=== PATIENT | female | born 1985 | race Caucasian/White ===

== ENCOUNTER 2017-06-07 17:54 | Emergency (ER) | payer OTHER ==
[~2017-06-07] VITALS: Ht 154.9 cm; Wt 56.8 kg
[2017-06-07 18:05] VITALS: BP 140/89; PULSE 80; RESP 20; O2SAT 100
--- NOTE | 2017-06-07 18:40 | DRSVH ---
PROCEDURE: X-RAY CHEST, TWO VIEWS ([id number]) INDICATIONS: CHEST PAIN W/BREATING DEEP TECHNIQUE: 2 views of the chest were acquired. COMPARISON: None. FINDINGS: Surgical changes and devices: None. Lungs and pleura: No pleural effusions or pneumothorax. Lungs are clear. Mediastinum: Mediastinal contours are normal. Heart size is normal. Bones and chest wall: No suspicious bony abnormalities. Soft tissues appear unremarkable. IMPRESSION: No acute pulmonary process. Dictated by: Jeanna Berry M.D. on 06/07/2017 at 18:38 Approved by: Jeanna Berry M.D. on 06/07/2017 at 18:38
[2017-06-07 18:58] LABS: BASOPHILS % (AUTO) 0.6 % (0-3); EOSINOPHILS % (AUTO) 5.3 % (0-5); MONOCYTES % (AUTO) 5.3 % (4-12); Mean Corpuscular Volume 90.8 fL (81-100); NEUTROPHILS % (AUTO) 41.9 % (40-74); Platelet Count 181 bil/L (150-400)
[2017-06-07 19:01] VITALS: BP 122/84; PULSE 76; RESP 11; O2SAT 99
--- NOTE | 2017-06-07 19:22 | ED.REPORT ---
HPI-Chest Pain Under 40 Date of Service Jun 07, 2017 ED Provider: Walt Cline DO Pt is an otherwise healthy 31 year old female who presents to the ED complaining of chest pain onset today. The pt denies sore throat and cough. Pt reports that the chest pain initially started in her throat. Her pain is exacerbated with deep inspiration, laughing, and certain movements. She denies a history of blood clot, recent lower extremity casting, recent surgery, recent 12 hour car ride, , and estrogen use. She also denies taking a deep breath and holding it. Pt reports that she is a former smoker, and that she quit in 04/2017. The pt admits to a car ride from [place] today, but states that it was not 12 hours. Pt does not have a family history of blood clots. She states that she ran for 30 minutes today while looking for her wallet on the freeway. Per pt, she has experienced similar symptoms previously after running in the cold. Nursing Notes Stated Complaint: PAIN IN CHEST/THROAT AREA Chief Complaint: Chest Pain-Non Cardiac Nature Nursing Notes Reviewed: Yes Allergies: Coded Allergies: No Known Allergies (Unverified , 06/07/17) General Time Seen by MD: 19:20 Chief Complaint Chest pain Hx Obtained From: Patient Arrived By: Walk-in Sudden in Onset?: No Onset Occurred: Just prior to arrival Symptom Duration: Since onset Location: : Substernal Quality: Painful Radiation: : Does not radiate Severity: Current: Moderate Severity: Maximum: Moderate Recent Healthcare: No recent doctor visit, No recent hospitalization Similar Sx Previous: Yes Risk Factors )( CAD Risk Stratification No Amphetamine, No Cocaine, No Diabetes mellitus, No Family history, No Hyperlipidemia, No Hypertension, No Known CAD, No Smoking Risk factors reviewed, No risk factors TAD Risk Stratification No 1st degree relative, No Aortic valve disease, No Coarctation of aorta, No Adriel-Danlos syndrome, No High intensity wt lifting, No Hypertension, No Inflamm dx / vasculitis, No Loeys-Dayna syndrome, No Marfan's syndrome, No Other genetic predisp, No Pre-exist aortic aneurysm, No , No Turners Syndrome Risk factors reviewed, No risk factors )( PE Risk Stratification No Coagulation Disorder, No Estrogen Medicine / BCP's, No Melisa, No Immobilization, No Malignancy, No , No , No Previous DVT, No Previous PE, No Surgery Last 60 Days, No Trauma Risk factors reviewed, No risk factors PERC Rule Heart rate 100 or over (101) PERC Result: PERC rule not satisfied Well's Criteria for PE Well's PE Score: 0-2 pts (low risk 3.6%) Past Medical History Past Medical History None reported - healthy Denies hx of blood clots Past Surgical History Denies Family History Denies blood clot Smoking History Former Smoker Social History Alcohol Use: "Social" Drug Use: Denies drug use Occupation [employer] Ambulatory Status Independent Review of Systems + pain with breathing Respiratory: Denies: Non-productive cough Cardiovascular: Reports: Chest pain Complete sys rev & neg: except as marked. Ears / Nose / Throat: Reports: Throat pain, Denies: Sore throat Physical Exam Initial Vital Signs Vital Signs (First) Date Time Temp Pulse Resp B/P Pulse Ox O2 Delivery O2 Flow Rate FiO2 06/07/17 18:05 37.1 80 20 140/89 100 Room Air Initial VS: Reviewed Head / Eyes: Atraumatic, Normocephalic Neck: Supple, Full range of motion Abdomen / GI: Soft, Non-tender Extremities: Vascular intact, Neuro intact Skin: Warm, Dry, No cyanosis Neurologic: Alert, Oriented, Nonfocal Psychiatric: Mood/affect normal, Behavior normal General/Constitutional: Awake, Alert Respiratory / Chest: Atraumatic, Breath sounds NL, Breath sounds = bilat Cardiovascular: Regular rhythm, Heart sounds NL Heart Rate / Rhythm: Positive: Tachycardia Interpretation & Diagnostics Lab Results Interpretation Result Diagram: 06/07/17 18506/07/17 185 Test 06/07/17 18:51 06/07/17 19:19 06/07/17 21:05 White Blood Count 5.2th/mm3 (3.8-10.1) Red Blood Count 4.15mil/mm3 (3.90-5.20) Hemoglobin 13.3g/dL (12.0-15.6) Hematocrit 37.7% (35.0-46.0) Mean Corpuscular Volume 90.8fL (81-100) Mean Corpuscular Hemoglobin 32.0pg (27.0-35.0) Mean Corpuscular Hemoglobin Concent 35.3% (32.0-37.0) Red Cell Distribution Width 12.1% (12.3-15.4) Platelet Count 181bil/L (150-400) Neutrophils (%) (Auto) 41.9% (40-74) Lymphocytes (%) (Auto) 46.9% (14-46) Monocytes (%) (Auto) 5.3% (4-12) Eosinophils (%) (Auto) 5.3% (0-5) Basophils (%) (Auto) 0.6% (0-3) D-Dimer < 0.50mg/L FEU (<0.50) Sodium Level 142mEq/L (134-144) Potassium Level 3.7mEq/L (3.5-5.2) Chloride Level 101mEq/L (97-108) Carbon Dioxide Level 23mmol/L (18-29) Blood Urea Nitrogen 13mg/dL (6-20) Creatinine 0.53mg/dL (0.57-1.00) Estimat Glomerular Filtration Rate 195mL/min (>59) Glucose Level 91mg/dL (60-99) Calcium Level 9.9mg/dL (8.5-10.1) Magnesium Level 1.8mg/dL (1.6-2.6) Total Bilirubin 0.2mg/dL (0.0-1.2) Aspartate Amino Transf (AST/SGOT) 16U/L (0-50) Alanine Aminotransferase (ALT/SGPT) 16U/L (0-32) Alkaline Phosphatase 56U/L (25-150) Total Protein 7.5g/dL (6.4-8.4) Albumin 4.5g/dL (3.4-5.0) Hold Quiroz Top Tube Received (Received) Troponin T 0.010ug/L (0.0-0.011) ECG Interpretation ECG Interpretation: Sinus rhythm with a rate of 77 Time: 18:54 Interpreted by: ED physician X-Ray Chest Interpretation Chest Xray Interpretation: IMPRESSION: No acute pulmonary process. Dictated by: Jeanna Berry M.D. on 06/07/2017 at 18:38 View: AP & lat Interpretation / Wet Read by: Interpret - Radiologist Re-Eval/Medical Decision Med Decision/Clinical Course Post exertional pleuritic chest pain. EKG normal. Serial troponins negative. While scores low risk 0 points. Pulmonary emboli rule out criteria were met except that when she was taking deep breaths her heart rate was 101. D-dimer negative. CT angiogram not indicated. Dissection highly unlikely. Pneumothorax ruled out. Overall I think she has pleurisy. Pain is reproduced with deep breathing and exposure to cold air. Recommend NSAIDs and close outpatient follow-up. Heart Score is 0. Source of Hx: Old records Re-Evaluation/Progress : Time of Eval: 21:53 Re-Evaluation/Progress Note: Pt rechecked. Informed pt of plan for discharge. Pt understands and agrees with plan for discharge. F/U instructions and RTER warnings given. All questions addressed. Counseled Regarding: Diagnosis, Lab results, Need for follow-up, When/why to return to ED Discharge & Departure Primary Impression: Chest pain Chest pain type: unspecified Qualified Code: R07.9 - Chest pain, unspecified Disposition: Home Discharge Condition All VS Reviewed: Yes Condition: Stable Patient Instructions: Chest Pain (ED) Additional Instructions: Your cardiac enzymes were normal. The cause of your pain today is uncertain. Call your primary care provider on Friday for a follow up appointment next week. Return to the Emergency Department for any new or worrisome symptoms. Referrals: OTHER,PHYSICIAN (PCP) Scribe Attestation Portions of this note were transcribed by Cindy King. I, Dr. Cline personally performed the history, physical exam and medical decision-making; I reviewed and confirmed the accuracy of the information in the transcribed note. Signed by : Al Neves, 06/07/17. copies to: BRENNON,PHYSICIAN Walt Cline DO Jun 07, 2017 19:21 Cindy Benjamin Jun 07, 2017 19:40
[2017-06-07 19:27] LABS: Magnesium 1.8 mg/dL (1.6-2.6)
[2017-06-07 19:29] LABS: TROPONIN T < 0.010 ug/L (0.0-0.011)
[2017-06-07] MEDS ORDERED: Albuterol 2.5 mg/3 mL Inhalation Solution NEB ONE (19:40)
[2017-06-07 20:33] VITALS: PULSE 75; O2SAT 100
[2017-06-07 21:44] VITALS: BP 111/68; PULSE 83; RESP 15; O2SAT 99
[2017-06-07 22:11] VITALS: BP 119/58; PULSE 94; RESP 17; O2SAT 99
== END 2017-06-07 22:12 | disposition home or self-care (01) ==
LOC: SED 17:54
DX: R07.2 Precordial pain (principal); Z87.891 Personal history of nicotine dependence
CPT/HCPCS: 36415; 71020; 80053; 83735; 84484; 85025; 85378; 93005; 94664; 99285; J7613